=== PATIENT | female | born 1970 | race Hispanic/Latino ===

== ENCOUNTER 2017-05-26 08:32 | Outpatient (CLI) | payer BC ==
--- NOTE | 2017-05-26 09:45 | MMO ---
BILATERAL SCREENING MAMMOGRAMS: Comparison: None available. History: Baseline study. This study is interpreted with the assistance of computer aided detection. FINDINGS: Heterogeneously dense glandular pattern. No evidence of mass or distortion. No suspicious calcificati on. Recommend one year follow up. IMPRESSION: BIRADS 1 - negative. POS: NASH
== END 2017-05-26 08:33 | disposition home or self-care (01) ==
LOC: SCSMAMMO 08:32
PROVIDERS: ATTEND Family Medicine
DX: Z12.31 Encounter for screening mammogram for malignant neoplasm of breast (principal)
CPT/HCPCS: 77067; G0202